=== PATIENT | male | born 1995 | race Caucasian/White ===

== ENCOUNTER 2025-07-18 10:26 | Emergency (ER) | payer BC ==
[2025-07-18 11:01] VITALS: RESP 18; TEMP 96; O2SAT 98
--- NOTE | 2025-07-18 11:04 | ERPHSYRPT ---
- History of Present Illness Time Seen by Provider: 07/18/25 10:55 Source: patient Exam Limitations: no limitations Patient Subjective Stated Complaint: Pt. states, "I have a stawberry birthmark on my buttcheek and it has been bleeding. I was sent to a mud jack nozzleman who put me on an antibiotic. I reacted to it so he started a new one and I still have to take benedryl with it d/t hives. I am getting radiation on the birthmark." Triage Nursing Assessment: Pt. ambulates to room without difficulty, A&Ox4, Skin p/Wd, Resp. even unlabored. able to move all 4 ext. In NAD. Physician History: This is a 30-year-old white male patient arrives with private vehicle who has known large left buttock strawberry hemangioma that in the last 2 to 3 weeks has been diagnosed with infection in it. Patient has seen dermatology as well as oncology and his primary care provider. Patient has taken 2 rounds of antibiotics. Within the last several days, after completing the first round of antibiotic and into the second round, the patient broke out in body welts and blisters. He has had swelling present. Despite the symptoms the patient completed the second round of antibiotics. He is used Benadryl which seemed to help the itching but earlier today, he had swelling of the lips. He said no wheezing or respiratory compromise. Quality: itchy Severity: moderate Location: face, torso (Both anterior and posterior), hands, extremities Possible Causes: medications Modifying Factors: Improves With: antihistamine (Help the itching) Associated Symptoms: blisters, change in skin texture Allergies/Adverse Reactions: doxycycline Allergy (Verified 07/18/25 11:07) Home Medications: Bupropion HCl 150 mg Sr [Wellbutrin SR 150 MG] 150 mg PO DAILY 07/18/25 [History] Chlorthalidone 25 mg PO DAILY 07/18/25 [History] Losartan Potassium 100 mg PO DAILY 07/18/25 [History] Metoprolol Succinate 25 mg Xl* [Toprol-Xl 25MG Tablets] 25 mg PO BID 07/18/25 [History] Hx Tetanus, Diphtheria Vaccination/Date Given: No Hx Influenza Vaccination/Date Given: No Hx Pneumococcal Vaccination/Date Given: No Immunizations Up to Date: No Travel Risk - International Travel Have you traveled outside of the country in past 3 weeks: No - Emerging Infectious Disease Are you exhibiting symptoms associated with any current EIDs: No - Review of Systems Constitutional: No Symptoms Eyes: No Symptoms Ears, Nose, & Throat: No Symptoms Respiratory: No Symptoms, No Wheezing Cardiac: No Symptoms, No Chest Pain Abdominal/Gastrointestinal: No Symptoms Genitourinary Symptoms: No Symptoms Skin: Rash Neurological: No Symptoms Psychological: No Symptoms Endocrine: No Symptoms Hematologic/Lymphatic: No Symptoms Immunological/Allergic: No Symptoms All Other Systems: Reviewed and Negative - Past Medical History Pertinent Past Medical History: Yes Cardiac History: Hypertension Psycho-Social History: Anxiety, Depression - Past Surgical History Past Surgical History: No - Social History Smoking Status: Never smoker Exposure to second hand smoke: No Drug Use: none - Social Determinants of Health Will the patient participate in the screening: Declined to provide - Nursing Vital Signs Nursing Vital Signs: Initial Vital Signs Temperature 96.0 F 07/18/25 10:26 Pulse Rate 72 07/18/25 10:26 Respiratory Rate 18 07/18/25 10:26 Blood Pressure 140/78 07/18/25 10:26 O2 Sat by Pulse Oximetry 98 07/18/25 10:26 Pain Scale Pain Intensity 0 - Physical Exam General Appearance: no apparent distress, alert, anxiety Eye Exam: PERRL/EOMI, eyes nml inspection Ears, Nose, Throat Exam: normal ENT inspection, moist mucous membranes, other (Mild swelling of the lips. No lingual edema) Neck Exam: normal inspection, non-tender, supple, full range of motion, other (No stridor) Respiratory Exam: normal breath sounds, lungs clear, airway intact, No chest tenderness, No respiratory distress, No wheezing, No stridor Cardiovascular Exam: regular rate/rhythm, normal heart sounds, normal peripheral pulses Gastrointestinal/Abdomen Exam: soft, normal bowel sounds, No tenderness Rectal Exam: not done Back Exam: normal inspection, normal range of motion, No CVA tenderness, No vertebral tenderness Extremity Exam: normal range of motion, pelvis stable, other (There is evidence of excoriation where the patient scratched previously present rash on bilateral upper extremities. 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 I see no evidence of abscess, pus or infection) Lymphatic Exam: No adenopathy SpO2 Interpretation: normal SpO2: 98 O2 Delivery: Room Air - Course Nursing assessment & vital signs reviewed: Yes Ordered Tests: Medication Summary Discontinued Medications Generic Name Dose Route Start Last Admin Trade Name Freq PRN Reason Stop Dose Admin Methylprednisolone Sodium 0 mg 07/18/25 11:04 Succinate 125 mg/ Sterile IM 07/18/25 11:05 Water 2 ml STAT ONE Famotidine 40 mg 07/18/25 11:04 Famotidine 20 Mg Tablet PO 07/18/25 11:05 STAT ONE - Progress Progress: improved, re-examined Progress Note: 07/18/25 11:16 My medical decision making and the assignment of low complexity of this patient's medical issue today is based on review of the patient's past medical history, reviewed the patient's medication list, reviewed patient drug allergy list, history present illness and physical findings on examination. The workup in this patient does not necessitate laboratory radiographic studies. Differential diagnosis includes was not limited to allergic reaction, contact dermatitis, medication side effect Counseled pt/family regarding: diagnosis, need for follow-up Medical Desision Making - Diagnostic Testing Diagnostic test were ordered, analyzed, and reviewed by me: No - Risk of complications Low Risk: Low risk of morbidity from additional dx testing or treatment The pt has a mod risk of morbidity or mortality based on: Need for prescription drug management - Departure Departure Disposition: Home Clinical Impression: Allergic reaction Condition: Stable Critical Care Time: No Referrals: LEILA LOW NP [Primary Care Provider, UNKNOWN] - Follow up/PCP as directed Additional Instructions: Do not take any oral antibiotics. Continue Benadryl as discussed, at least 25 mg of Benadryl orally every 8 hours. May increase your dose prior to going to bed to 50 mg orally over the next 4 days. Take your Pepcid and prednisone as prescribed. Monitor your blood pressure while taking the steroids. Call your primary care provider today, 07/18/2025, to make arrangements for follow-up appointment for further evaluation management. Return to the emergency department if symptoms worsen Prescriptions: Prednisone 10 mg [Deltasone 10 mg] 10 mg PO TID #12 tablet Famotidine 20 mg [Pepcid 20 MG] 20 mg PO DAILY #10 tablet
[2025-07-18] MEDS ORDERED: Pepcid 20 MG ONE (11:11)
[2025-07-18] MEDS ORDERED: Sterile H2O 10 ml IJ ONE (11:11)
[2025-07-18] MEDS: Pepcid 20 MG PO ONE (11:14)
[2025-07-18] MEDS: solu-MEDROL 125 MG, Sterile H2O 10 ml 2 ML IM ONE (11:15)
[2025-07-18 11:56] VITALS: BP 134/72; PULSE 68
== END 2025-07-18 11:22 | disposition home or self-care (01) ==
LOC: ED 10:26
DX: L50.9 Urticaria, unspecified (principal); T50.905A Adverse effect of unspecified drugs, medicaments and biological substances, initial encounter; I10 Essential (primary) hypertension; Z79.899 Other long term (current) drug therapy; Z79.52 Long term (current) use of systemic steroids